=== PATIENT | male | born 2000 | race Caucasian/White ===

== ENCOUNTER 2020-08-07 10:20 | Emergency (ER) | payer OTHER, SELFPAY ==
--- NOTE | ~2020-08-07 | XR_ITS ---
[XR ribs RT 2V w CXR 2V ] INDICATION: Right rib pain after wrestling TECHNIQUE: Frontal projection of the upper right ribs, frontal projection of the lower right ribs, ob lique projection of all the right ribs, frontal inspiratory chest x-ray for interpretation. FINDINGS: There are no displaced rib fractures identified. There are no soft tissue abnormality see n. The lungs are clear. IMPRESSION: 1:No displaced rib fractures. Reviewed, dictated and finalized at location A.
[2020-08-07 10:29] VITALS: BP 136/69; PULSE 58; RESP 18; TEMP 36.8; O2SAT 98
--- NOTE | 2020-08-07 10:53 | ED.BACK ---
HPI - Back Pain/Injury General Chief Complaint: Back Pain/Injury Stated Complaint: right lower rib pain Time Seen by Provider: 08/07/20 10:27 Source: patient Mode of arrival: ambulatory Limitations: no limitations History of Present Illness HPI Narrative: This is a 20-year-old male that presents the emergency department for right-sided posterior back pain after an injury last night. Reports he was wrestling with a friend and was slammed onto the ground on his right side. Reports since he has had pain in his ribs in the back. Denies hitting his head, loss of consciousness, other injuries, weakness, or numbness. Related Data Home Medications Medication Instructions Recorded Confirmed No Home Medications 08/07/20 08/07/20 Allergies Allergy/AdvReac Type Severity Reaction Status Date / Time ibuprofen Allergy Anaphylaxis Verified 08/07/20 10:31 Review of Systems Review of Systems: Narrative: CONSTITUTIONAL: Denies fever MUSCULOSKELETAL: Reports back pain, and myalgia. NEUROLOGIC: Denies numbness, or weakness. All systems reviewed & are unremarkable except as noted in HPI and below PMFSH Past Medical History Medical History (Updated 08/07/20 @ 11:33 by No Sterling PA-C) No active medical problems Social History Social History (Updated 08/07/20 @ 10:54 by No Sterling PA-C) Smoking status: Never smoker Gender identity (if verbalized by the patient): Male Exam Narrative: Exam Narrative: GENERAL: Well-appearing, well-nourished, and in no acute distress. HEAD: Normocephalic, atraumatic. EYES: EOMI. CHEST: Clear to auscultation. No respiratory distress. No wheezes rales or rhonchi. Tender to palpation of the right posterior, lateral lower ribs HEART: Regular rate and rhythm. No murmur heard. Normal peripheral pulses. BACK: No midline thoracic or lumbar spine tenderness EXTREMITIES: Normal range of motion. No edema. SKIN: Warm, dry, no rash. NEURO: No focal deficits. Alert and oriented x3. PSYCH: Normal mood and affect Course Vital Signs Vital signs: Vital Signs Temperature 98.3 F 08/07/20 10:29 Pulse Rate 58 L 08/07/20 10:29 Respiratory Rate 18 08/07/20 10:29 Blood Pressure 136/69 08/07/20 10:29 Pulse Oximetry 98 08/07/20 10:29 Temperature 98.3 F 08/07/20 10:29 Pulse Rate 58 L 08/07/20 10:29 Respiratory Rate 18 08/07/20 10:29 Blood Pressure 136/69 08/07/20 10:29 Pulse Oximetry 98 08/07/20 10:29 MDM - Back Pain/Injury MDM Narrative Medical decision making narrative: Patient presents to the emergency department for right posterior back pain after an injury yesterday. Right rib/chest x-rays without acute findings. Patient and family updated on case findings. He was instructed to rest, ice and take [id number] pain medication as needed. He is to follow-up with primary care doctor. He was given warnings to return to the ER Imaging Data Radiologist's impression: ITS Impressions Ribs w/Chest X-Ray 08/07/20 11:01 IMPRESSION: 1:No displaced rib fractures. Critical Care Time Critical Care Time Critical Care Time: No Discharge Plan Discharge Clinical Impression: Contusion of rib on right side Qualifiers: Encounter type: initial encounter Qualified Code(s): S20.211A - Contusion of right front wall of thorax, initial encounter Patient Disposition: Home, Self-Care Condition: Stable Instructions: Rib Contusion (ED) Additional Instructions: Return to the emergency department if you experience fever, chest pain, shortness of breath, sudden onset numbness or tingling, or any other symptoms that are concerning to you Rest. Ice to the area. Tylenol or ibuprofen as needed for pain Follow-up with your primary care doctor Prescriptions: No Action No Home Medications RF: 0 Follow-up/Referrals: Carlos Rinaldi MD [Primary Care Provider] - 3 Days
[2020-08-07 11:43] VITALS: BP 129/64; PULSE 60; RESP 18; O2SAT 100
== END 2020-08-07 11:45 | disposition home or self-care (01) ==
PROVIDERS: Emergency Provider Emergency Medicine; PCP Pediatrics
DX: S20.211A Contusion of right front wall of thorax, initial encounter (principal); X58.XXXA Exposure to other specified factors, initial encounter; Y93.83 Activity, rough housing and horseplay
CPT/HCPCS: 71046; 71100; 99283

== ENCOUNTER → 2021-06-28 17:11 | Outpatient (CLI) | payer OTHER, SELFPAY ==
--- NOTE | ~2021-06-28 | XR_ITS ---
EXAMINATION: XR ankle RT min 3V DATE: 06/28/2021 17:25 INDICATION: Right ankle injury and pain and swelling. TECHNIQUE: 4 views of right ankle were obtained. COMPARISON: None. FINDINGS: Bone alignment is normal. No fracture. Joint spaces are well maintained. IMPRESSION: 1. Normal right ankle. Reviewed, dictated and finalized at location A. IMPRESSION: 1. Normal right ankle.
== END ==
PROVIDERS: Visit Provider Pediatrics
DX: S99.911A Unspecified injury of right ankle, initial encounter (principal)
CPT/HCPCS: 73610

== ENCOUNTER 2022-04-01 16:15 | Emergency (ER) | payer OTHER, SELFPAY ==
[2022-04-01 16:19] VITALS: BP 162/98; PULSE 97; RESP 20; TEMP 36.8; O2SAT 100
[2022-04-01 17:04] VITALS: BP 142/91; PULSE 77; RESP 18; O2SAT 98
--- NOTE | 2022-04-01 17:05 | ED.WOUNDLAC ---
HPI - Wound/Laceration General Chief Complaint: Wound/Laceration <JOSE Wood Last Filed: 04/01/22 20:19> Stated Complaint: bit tongue <JOSE Wood Last Filed: 04/01/22 20:19> Time Seen by Provider: 04/01/22 16:24 <JOSE Wood Last Filed: 04/01/22 20:19> Source: patient and family <JOSE Wood Last Filed: 04/01/22 20:19> Mode of arrival: ambulatory <JOSE Wood Last Filed: 04/01/22 20:19> Limitations: no limitations <JOSE Wood Last Filed: 04/01/22 20:19> History of Present Illness HPI narrative: Patient is a 21-year-old male who presents the ED with report of tongue laceration. Patient reports he was celebrating his college graduation and was playing a game with a friend. They ran into each other in celebration causing the patient to bite his tongue. He did sustain lacerations to both sides of tongue. Unsure if it is a through and through injury. No other injuries. No LOC. No blood thinners. No malocclusion. No broken teeth. No jaw pain. Patient has been drinking ETOH. Tetanus up-to-date. <JOSE Wood Last Filed: 04/01/22 20:19> Related Data Allergies/Adverse Reactions: Allergies Allergy/AdvReac Type Severity Reaction Status Date / Time ibuprofen Allergy Anaphylaxis Verified 08/07/20 10:31 <JOSE Wood Last Filed: 04/01/22 20:19> Review of Systems Review of Systems: CONSTITUTIONAL: Denies fever. ENT: Reports lacerations to tongue. Denies malocclusion, broken teeth, jaw pain. MUSCULOSKELETAL: Denies back pain, joint pain. NEUROLOGIC: Denies LOC. <JOSE Wood Last Filed: 04/01/22 20:19> All systems reviewed & are unremarkable except as noted in HPI and below <JOSE Wood Last Filed: 04/01/22 20:19> [facility] Past Medical History Medical History: Medical History (Updated 04/02/22 @ 00:00 by Yefri Perez) No active medical problems <Kathryn Ornelas PA-C - Last Filed: 04/01/22 20:19> Surgical History Surgical History: Surgical History (Updated 04/01/22 @ 17:06 by Kathryn Ornelas PA-C) No pertinent past surgical history <Kathryn Ornelas PA-C - Last Filed: 04/01/22 20:19> Social History Social History: Social History Smoking status: Never smoker Gender identity (if verbalized by the patient): Male <Kathryn Ornelas PA-C - Last Filed: 04/01/22 20:19> Exam Narrative: GENERAL: Well appearing, well-nourished, non-toxic, in no acute distress. HEAD: Normocephalic, atraumatic. EYES: PERRL/EOMI, conjunctivae clear bilaterally. THROAT: 1.5 cm fairly linear horizontal deep laceration to dorsum of tongue approximately 1 cm from apex of tongue. Additional 1 cm laceration to underside of tongue near apex. No involvement of the frenulum. Does not appear to be a through and through injury. Some active bleeding noted to lacerations. No trismus, malocclusion, broken teeth. NECK: Supple. No adenopathy, no masses. RESPIRATORY: Airway patent, respirations nonlabored. Clear to auscultation bilaterally, no rales, rhonchi, wheezing. CARDIOVASCULAR: Regular rate and rhythm without murmurs, rubs, or gallops. Radial pulses 2+ and equal bilaterally. MUSCULOSKELETAL: Moves all extremities. Strength/ROM intact without gross deformities. SKIN: Warm, dry, normal color. No rashes. NEURO: A&O X3. Speech clear. Cranial nerves II-XII grossly intact. Steady gait. No ataxic movements. PSYCHIATRIC: Appropriate mood and affect. Normal interaction. <Kathryn Ornelas PA-C - Last Filed: 04/01/22 20:19> Course BILLING REPRESENTATIVE/PA Physician Supervision For this patient encounter, I reviewed the BILLING REPRESENTATIVE or PA documentation, treatment plan, and medical decision making; and I had [id number] time with this patient. <Odilon Castanon MD - Last Filed: 04/02/22 20:00> Vital Signs Vital signs: Vital Signs Temperature
--- NOTE | 2022-04-01 17:09 | PC.NURSE ---
Blood cleaned from pts hand and face
[2022-04-01 18:40] VITALS: BP 132/88; PULSE 77; RESP 18; O2SAT 98
== END 2022-04-01 18:40 | disposition home or self-care (01) ==
PROVIDERS: Emergency Provider Emergency Medicine
DX: S01.512A Laceration without foreign body of oral cavity, initial encounter (principal); W51.XXXA Accidental striking against or bumped into by another person, initial encounter
CPT/HCPCS: 12011; 41250; 99283